=== PATIENT | male | born 1955 | race African-American/Black ===

== ENCOUNTER 2018-09-07 14:39 | Inpatient (IN) | payer OTHER ==
[~2018-09-07] VITALS: Ht 170.2 cm; Wt 79.4 kg
--- NOTE | ~2018-09-07 | HC ---
[facility] [place] [address] CONSULTATION Name: DANIEL BIGGS Room #: 429-P ADM IN M.R.#: [id number] Admission: 09/07/18 ������������������ Attend Phys: Jeremy Huitron MD Discharge: ������������������ Date of : 53 Report #: [id number] THIS REPORT FOR: //name// CC: FAM unknown Jeremy Huitron DATE OF SERVICE: 09/08/2018 HISTORY OF PRESENT ILLNESS: This is a 62-year-old male patient who was seen by me for a complicated history. This patient indicates that he had surgery on his neck about 4 years ago. He started becoming weaker in his lower extremities about 1 year ago. It has progressively become worse according to the patient. He saw some neurosurgeon at [facility] and they did an MRI of the cervical spine, and at one time, they thought that the patient's screws and plates in the cervical spine were affected, but on other occasion they thought they were not. He came to the hospital because he was getting weaker. REVIEW OF SYSTEMS: Indicate he does not have any other new symptoms except urinary problems, but he is running temperature. He did fall down, but did not hit his head. He does have some anemia, is running some temperature. He does have gallstones. He has a prostate enlargement, looks like he has splenomegaly. He has trouble with platelet count. This was his relevant 14-point review of systems. He has pain management problem. He takes Lyrica and oxycodone. PAST MEDICAL HISTORY: Positive for surgery in the neck. FAMILY HISTORY: Negative for early age stroke. SOCIAL HISTORY: He smokes, but he does not drink any alcohol. PHYSICAL EXAMINATION: The patient's examinations indicate that he is alert, responsive and follow simple commands. His memory looks somewhat diminished. I do not know what his baseline memory is. His cranial nerve examination appears unremarkable. He is profoundly weak in his lower extremities. I do not know what his baseline is. Ultimately, he gets the position sense right, but it takes him some time to decipher that. His reflexes appear to be present on the right lower extremity. Left lower extremity is difficult to evaluate for reflexes. He thinks pinprick looks altered. I could not look at his fundus. Cardiac examination appears unremarkable. No respiratory difficulty or rhonchi was noticed. His blood pressure is 143/59, respirations 22, pulse is 58, temperature is 101. He did have an MRI of the lumbar spine, which appear unremarkable. IMPRESSION: 1. Progressively worsening leg weakness. That needs further evaluation first by MRI and later on by EMG. I discussed with the patient the limitation of our [address] [address] CONSULTATION Name: DANIEL BIGGS Room #: 429-P [facility] IN M.R.#: [id number] Admission: 09/07/18 ������������������ Attend Phys: Jeremy Huitron MD Discharge: ������������������ Date of : 53 Report #: [id number] hospital that no spine physician or neurosurgeon comes here. No pain management comes here either. He understands that. I will go ahead and order an MRI to see if that shows any abnormality. 2. He is running temperature and that needs further evaluation. That is especially true with increased white count when he came in and abdominal pain and CT showing gallstone, etc. 3. His platelet count is low, that does predispose him to some hematomas and that may have to be addressed. 4. He also has multiple other metabolic abnormalities like low calcium and magnesium. RECOMMENDATIONS: 1. Main thing I will recommend is doing an MRI of the spine. 2. Workup of other things including the fever and metabolic abnormalities and low platelet count. 3. I will suggest stopping the Lovenox since the patient's platelet count is low. I discussed all of it with the patient. I discussed his options in that regard. He wants to stay here and get the workup done. I will suggest the workup as described above. We do not have an EMG machine and if that need to be done, that will be as an outpatient. ��������������������������������������������� ���������������������������������������� By: ��������������������������������������������� [id number] Medardo Jane MD /nt
[2018-09-07 14:40] VITALS: BP 149/64
[2018-09-07 15:16] LABS: HEMATOCRIT 36.5 % (42.0-52.0); HEMOGLOBIN 11.6 gm/dL (14.0-18.0); MCH 20.4 pg (26.0-34.0); MCHC 31.9 g/dL (28.0-37.0); RDW 18.9 % (10.5-14.5); WBC 11.4 thou/uL (4.0-11.0)
[2018-09-07 15:19] LABS: ANION GAP 9 mmol/L (7-16); BUN 15 mg/dL (7-18); CALCIUM 8.5 mg/dL (8.5-10.1); CHLORIDE 100 mmol/L (98-107); CO2 26 mmol/L (21-32); CREATININE 1.1 mg/dL (0.7-1.3); GLUCOSE 113 mg/dL (74-106); POTASSIUM 3.9 mmol/L (3.5-5.1); SODIUM 135 mmol/L (136-145)
[2018-09-07 15:30] LABS: ALBUMIN 3.9 g/dL (3.4-5.0); LIPASE 59 U/L (73-393); SGOT 17 U/L (15-37); SGPT 14 U/L (30-65); TOTAL BILIRUBIN 1.5 mg/dL (<0.1-1.0); TOTAL PROTEIN 7.4 g/dL (6.4-8.2); TROPONIN-I <0.06 ng/mL (<0.06)
[2018-09-07 16:39] LABS: ABSOLUTE NEUTROPHILS 10.3 thou/uL (1.4-8.2); ATYPICAL LYMPHS 1 %
[2018-09-07 16:40] LABS: MICROCYTES 4+; TARGET CELLS 4+
[2018-09-07 16:41] LABS: HYPOCHROMASIA 4+; LARGE PLATELETS SEVERAL; PLATELET COUNT 160 thou/uL (150-400)
[2018-09-07 16:42] LABS: MACROCYTES 2+
[2018-09-07] MEDS ORDERED: PREDNISONE 20 M20 MG PO (16:58)
[2018-09-07] MEDS ORDERED: PERCOCET 10-321 EACH PO (17:51)
[2018-09-07] MEDS ORDERED: LYRICA 75 MG CA75 MG PO (17:51)
[2018-09-07 18:04] VITALS: BP 134/76
[2018-09-07 18:43] VITALS: BP 130/56
[2018-09-07 19:25] VITALS: BP 129/55
[2018-09-07 21:34] VITALS: BP 128/71
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
[2018-09-08 01:18] LABS: URINE BILIRUBIN 1+ (Negative); URINE BLOOD 2+ (Negative); URINE CLARITY SL CLOUDY; URINE COLOR YELLOW; URINE GLUCOSE-RANDOM* NEGATIVE (Negative); URINE KETONES TRACE (Negative); URINE LEUKOCYTES-REFLEX TRACE (Negative); URINE NITRITE-REFLEX NEGATIVE (Negative); URINE PROTEIN (DIPSTICK) 2+ (Negative)
[2018-09-08 01:50] LABS: ICTOTEST (BILI CONFIRMATORY) Positive (Negative)
[2018-09-08 01:51] LABS: CASTS None Seen /LPF (None Seen); CRYSTALS None Seen /LPF (None Seen); MUCUS None Seen strn/LPF (None Seen); SQUAMOUS None Seen /LPF (0-3); URINE WBC-REFLEX 0-5 Rare /HPF (0-5)
[2018-09-08 05:14] VITALS: BP 142/52
[2018-09-08 05:53] LABS: HEMOGLOBIN 10.8 gm/dL (14.0-18.0); MCH 20.2 pg (26.0-34.0); MCHC 30.8 g/dL (28.0-37.0); MCV 65.6 fL (80.0-100.0); RBC 5.34 mil/uL (4.50-6.00); RDW 18.3 % (10.5-14.5); WBC 9.8 thou/uL (4.0-11.0)
[2018-09-08 06:03] LABS: CALCIUM 7.7 mg/dL (8.5-10.1); CREATININE 0.9 mg/dL (0.7-1.3); POTASSIUM 3.6 mmol/L (3.5-5.1)
[2018-09-08 08:26] VITALS: BP 143/59
--- NOTE | 2018-09-08 08:55 | EKG ---
[address] [address] ELECTROCARDIOGRAM REPORT Name: DANIEL BIGGS Room #: 429-P ADM IN M.R.#: [id number] ������������������ Admission: 09/07/18 ������������������ Attend Phys: Jeremy Huitron MD Discharge: ������������������ Date of : 53 Report #: [id number] ����������������������������������������������������������������� [id number] THIS REPORT FOR: //name// [facility] ED Test Date: 2018-09-07 Test Time: 14:56:20 Pat Name: DANIEL BIGGS Department: Room: 429 Gender: M [employer]: CARMEN : 1955 Requested By: Adam Arroyo Order Number: [id number] MD: Danyel Gaming Measurements Intervals [place] Rate: 82 P: 53 KS: 146 QRS: -54 QRSD: 92 T: 31 QT: 355 QTc: 415 Interpretive Statements Sinus rhythm Inferior infarct, old Right ventricular conduction delay No previous ECG available for comparison Electronically Signed On 09-08-2018 8:55:23 CDT by Danyel Gaming [email or web address] ��������������������������������������������� <ELECTRONICALLY SIGNED> ���������������������������������������� By: Danyel Gaming MD, [facility] ��������������������������������������������� 09/08/18 [id number] Danyel Gaming MD, FACC /EPI
--- NOTE | 2018-09-08 11:00 | NUR ---
ASSESMENT COMPLETED. VSS. A/O. C/O HEADACHE MANAGED BY MEDS ORDERED. NO NOTED SOA. NO NV. PT NO CONCERNS VOICED AT THIS TIME. WILL CONT. TO MONITOR.
--- NOTE | 2018-09-08 13:26 | NUR ---
INITIAL ASSESSMENT: Pt evaluated for d/c planning needs. Reviewed chart and spoke with nurse and pt. Pt is alert and oriented. Pt states he lives in house with spouse. Pt was independent with ADL's and has walker and cane at home. Pt said he has not had home health in the past. Pt is hopeful that he will be able to return home on d/c from hospital. Will remain available to assist as needed.
[2018-09-08 17:04] VITALS: BP 145/59
[2018-09-08 19:41] VITALS: BP 122/55
--- NOTE | 2018-09-09 04:08 | NUR ---
Assumed care of pt at 1900. Denies pain. Pt requests to go outside and smoke. Education provided. RESPIRATORY CARE PROGRAM DIRECTOR on duty notified and nicotine patch ordered. Pt is weak. Fall precautions in place. Will continue to monitor.
[2018-09-09 04:38] VITALS: BP 119/66
[2018-09-09 07:25] VITALS: BP 147/63
[2018-09-09] MEDS ORDERED: CYCLOBENZAPRINE5 MG PO (10:10)
[2018-09-09] MEDS ORDERED: PERCOCET 10-321 EACH PO (10:10)
--- NOTE | 2018-09-09 14:47 | NUR ---
PATIENT SEEN BY ILAN ARIAS NP WITH DR. ANNE, FOR ACUTE REHAB CONSULT. PATIENT NOT APPROPRIATE FOR ACUTE REHAB. PLAN FOR D/C TO HOME WITH HOME HEALTH CARE. THANK YOU FOR THIS REFERRAL.
[2018-09-09 14:54] VITALS: BP 147/63
--- NOTE | 2018-09-09 15:56 | NUR ---
Following for d/c planning needs. Pt to be d/c home today with home health and walker. [facility] is out of network. Called [facility] and faxed face sheet at [phone]. Did not hear back from them until 1500. Contacted [facility] was delivered to patient's room. Pt is agreeable with home health. [facility] to provide home health services. No other needs identified.
[2018-09-09 16:04] VITALS: BP 147/63
[2018-09-09 16:20] VITALS: BP 147/68
--- NOTE | 2018-09-09 17:40 | NUR ---
PT ASSESSED AT START OF SHIFT. DOING BETTER. DISCHARGED AT THIS TIME TO HOME PER CAB. PLAN FOR HOME THERAPY TO STRENGTHEN MUSCLES. WALKER GIVEN.
== END 2018-09-09 18:00 | disposition home health service (06) | DRG 552 ==
LOC: ER 14:39 → EROBS 17:28 → ER 17:28 → 4E 18:45 → EROBS 18:45 → 4E 19:21
PROVIDERS: Emergency Medicine; Nurse Practitioner Family; ADMIT Internal Medicine
DX: M47.812 Spondylosis without myelopathy or radiculopathy, cervical region (principal); K80.20 Calculus of gallbladder without cholecystitis without obstruction; K59.00 Constipation, unspecified; I10 Essential (primary) hypertension; N40.0 Benign prostatic hyperplasia without lower urinary tract symptoms; F17.210 Nicotine dependence, cigarettes, uncomplicated; D64.9 Anemia, unspecified; R26.9 Unspecified abnormalities of gait and mobility; E80.6 Other disorders of bilirubin metabolism; R20.0 Anesthesia of skin; G89.4 Chronic pain syndrome; W18.39XA Other fall on same level, initial encounter; Y93.89 Activity, other specified; Y92.89 Other specified places as the place of occurrence of the external cause; Y99.8 Other external cause status
CPT/HCPCS: 10084

== ENCOUNTER → 2020-10-06 | Outpatient (CLI) | payer OTHER ==
[~2020-10-06] MED LIST: CYCLOBENZAPRINE5 MG PO; LYRICA 75 MG CA75 MG PO; PERCOCET 10-321 EACH PO; PREDNISONE 20 M20 MG PO
== END ==
LOC: RAD 16:36
PROVIDERS: ATTEND Nurse Practitioner
DX: R07.9 Chest pain, unspecified (principal)